=== PATIENT | female | born 1975 | race Caucasian/White ===

== ENCOUNTER → 2020-07-22 | Outpatient (CLI) | payer BC | LOC: MC.RAD 06-17 10:00 | DX: Z12.31 Encounter for screening mammogram for malignant neoplasm of breast (principal) ==

== ENCOUNTER → 2022-05-25 | Outpatient (CLI) | payer BC | LOC: MC.RAD 13:58 | DX: Z12.31 Encounter for screening mammogram for malignant neoplasm of breast (principal) ==

== ENCOUNTER 2023-11-09 14:09 | Emergency (ER) | payer OTHER ==
[~2023-11-09] VITALS: Ht 160 cm; Wt 122.7 kg
[~2023-11-09 14:09] MED LIST: MOBIC15 MG PO; TYLENOL 500MG500 MG PO
[2023-11-09 14:32] VITALS: BP 116/64; TEMP 97.8
[2023-11-09 16:59] VITALS: PULSE 80
== END 2023-11-09 16:59 | disposition home or self-care (01) ==
LOC: COL.ER 14:09
DX: S83.91XA Sprain of unspecified site of right knee, initial encounter (principal); W00.0XXA Fall on same level due to ice and snow, initial encounter; X50.1XXA Overexertion from prolonged static or awkward postures, initial encounter
CPT/HCPCS: 31289; L1830; L1846

== ENCOUNTER → 2024-08-01 | Outpatient (CLI) | payer OTHER | LOC: MC.RAD 09:09 | DX: Z12.31 Encounter for screening mammogram for malignant neoplasm of breast (principal) ==